=== PATIENT | male | born 1995 | race Caucasian/White ===

== ENCOUNTER 2024-04-21 22:04 | Emergency (ER) | payer OTHER ==
[2024-04-21 22:17] LABS: Glucose,Whole Blood 111 mg/dL (70-110)
--- NOTE | 2024-04-21 22:31 | ED ---
Trauma HPI - General Stated Complaint: Fall Time Seen by Provider: 04/21/24 22:09 Source: patient, family Mode of arrival: ambulatory Limitations: no limitations - History of Present Illness Initial Comments: This patient is a 28-year-old man who arrives to have evaluation after having had a fall. The patient reportedly on the roof of his residence. Fell approximately 15 to 20 feet landing on the ground. The patient does not remember the details of the fall. He is not aware if he lost consciousness or not but definitely was dazed if not unconscious. The patient's partner states that family heard him yelling went and found that he had fallen and they convinced him to come here. The patient complains of pain to the left side of the face and the left maxillary area. The patient denies pain to the neck, chest, back and extremities. He does have left shoulder abrasion and left facial laceration that he has noted. He states his last tetanus shot was less than 10 years ago. MD Complaint: fall -: minutes(s) Loss of Consciousness: unsure Location: head Location - Extremities: Left: Shoulder Consistency: constant Context: mechanical fall Associated Symptoms: denies other symptoms - Related Data Previous Rx's Medication Instructions Recorded Cyclobenzaprine [Flexeril] 10 mg PO TID #20 tab 04/13/15 methylPREDNISolone [Medrol] 4 mg PO DIRECTED #1 tab.ds.pk 04/13/15 Allergies Allergy/AdvReac Type Severity Reaction Status Date / Time No Known Allergies Allergy Verified 04/21/24 22:53 Review of Systems ROS Statement: Those systems with pertinent positive or pertinent negative responses have been documented in the HPI. ROS Other: All systems not noted in ROS Statement are negative. Constitutional: Denies: fever, weakness Eyes: Reports: eye pain. Denies: vision change ENT: Denies: ear pain, hearing loss, epistaxis Respiratory: Denies: cough, dyspnea Cardiovascular: Denies: chest pain, palpitations, syncope Gastrointestinal: Denies: abdominal pain, nausea, vomiting Genitourinary: Denies: dysuria, hematuria Skin: Denies: rash Neurological: Reports: headache. Denies: weakness, numbness, paresthesias, confusion Hematological/Lymphatic: Denies: easy bleeding Past Medical History Past Medical History: No Reported History Additional Past Medical History / Comment(s): HAS UMBILICAL HERNIA, AND LIPOMA ON BACK. History of Any Multi-Drug Resistant Organisms: None Reported Past Surgical History: Tonsillectomy Past Anesthesia/Blood Transfusion Reactions: No Reported Reaction Past Psychological History: No Psychological Hx Reported Past Alcohol Use History: Occasional Past Drug Use History: Marijuana, Prescription Drug Abuse Additional Drug Use History / Comment(s): WAS IN REHAB X2 FOR PREV DRUG USE; NO NE IN PAST YEAR. FATHER UNSURE OF ALL DRUGS POSSIBLY USED - ASK PATIENT ON ARRIVAL General Exam Limitations: no limitations General appearance: alert Head exam: Present: normocephalic, other (Patient has left frontal abrasion and contusion with small amount of swelling and tenderness. No obvious deformity. Left periorbital contusion and swelling.) Eye exam: Present: PERRL, EOMI, periorbital swelling, periorbital tenderness ENT exam: Present: normal oropharynx, mucous membranes moist Neck exam: Present: normal inspection, full ROM. Absent: tenderness, meningismus Respiratory exam: Present: normal lung sounds bilaterally. Absent: respiratory distress, wheezes, rales, rhonchi, stridor, chest wall tenderness, accessory muscle use Cardiovascular Exam: Present: regular rate, normal rhythm, normal heart sounds. Absent: systolic murmur, diastolic murmur, rubs, gallop GI/Abdominal exam: Present: soft. Absent: distended, tenderness, guarding, rebound, rigid, mass Extremities exam: Present: normal capillary refill, other (There is abrasion over the left deltoid area of the shoulder. No obvious deformity. Moderate tenderness.). Absent: pedal edema, calf tenderness Back exam: Present: normal inspection. Absent: CVA tenderness (R), CVA tenderness (L) Neurological exam: Present: alert, oriented X3, CN II-XII intact. Absent: motor sensory deficit Skin exam: Present: warm, dry, intact, normal color. Absent: rash Course Vital Signs 04/21/24 04/22/24 22:05 01:50 Temperature 97.8 F 97.6 F Pulse Rate 73 65 Respiratory 15 18 Rate Blood Pressure 143/107 138/85 O2 Sat by Pulse 95 95 Oximetry Medical Decision Making - Medical Decision Making The case is activated as a trauma 2. Arrival the patient brought directly to the trauma room where he is seen and evaluated. Studies are ordered. The patient was up and ambulating therefore pelvis x-ray was held. The patient had chest x-ray that I interpreted as negative for pneumothorax, acute bony injury, or infiltrate. The patient is sent for CT scans He had CT of the brain and C-spine that I interpreted as negative for acute intracranial hemorrhage, cervical fracture or subluxation. The patient had CT of the chest abdomen and pelvis that I interpreted as negative for acute bony trauma or solid organ injury. No free air in the chest or abdomen. Patient had CT of the facial bones which do reveal left orbital roof fracture and fracture of the greater wing of the sphenoid bone. Patient also does have radiopaque foreign bodies in the facial laceration. The patient's injuries are discussed with the trauma surgeon and recommendation is to have the patient transferred to be evaluated by facial plastics. Patient is given empiric dose of antibiotics to cover the facial fractures and the laceration. Was pt. sent in by a medical professional or institution (, [facility], [employer], urgent care, hospital, or senior care...) When possible be specific @ -[No] Did you speak to anyone other than the patient for history (EMS, parent, family, police, friend...)? What history was obtained from this source @ -[No] Did you review nursing and triage notes (agree or disagree)? Why? @ -[I reviewed and agree with nursing and triage notes] Were old charts reviewed (outside hosp., previous admission, EMS record, old EKG, old radiological studies, urgent care reports/EKG's, senior care records)? Report findings @ -[No old charts were reviewed] Differential Diagnosis (chest pain, altered mental status, abdominal pain women, abdominal pain men, vaginal bleeding, weakness, fever, dyspnea, syncope, headache, dizziness, GI bleed, back pain, seizure, CVA, palpatations, mental health, musculoskeletal)? @ -[Differential Musculoskeletal Muscular strain, contusion, ligament sprain, fracture, arthritis, septic arthritis, bursitis, cellulitis, muscle spasm, nerve compression, DVT, arterial occlusion, herpes zoster, electrolyte abnormality, tumor.... This is not meant to be in all inclusive list EKG interpreted by me (3pts min.). @ -[As above] X-rays interpreted by me (1pt min.). @ -[I interpreted as above CT interpreted by me (1pt min.). @ -[I interpreted as above U/S interpreted by me (1pt. min.). @ -[None done] What testing was considered but not performed or refused? (CT, X-rays, U/S, labs)? Why? @ -[None] What meds were considered but not given or refused? Why? @ -[None] Did you discuss the management of the patient with other professionals (pro fessionals i.e. , PA, INTERIM CONTR[employer]ER, lab, RT, psych nurse, social science professor, professor of economics, teacher, surveillance officer, showcase trimmer)? Give summary @ -[No] Was smoking cessation discussed for >3mins.? @ -[No] Was critical care preformed (if so, how long)? @ -[Yes, 40 minutes Were there social determinants of health that impacted care today? How? (Homelessness, low income, unemployed, alcoholism, drug addiction, tra nsportation, low edu. Level, literacy, decrease access to med. care, fpc, rehab)? @ -[No] Was there de-escalation of care discussed even if they declined (Discuss DNR or withdrawal of care, Hospice)? DNR status @ -[No] What co-morbidities impacted this encounter? (DM, HTN, Smoking, COPD, CAD, Can cer, CVA, ARF, Chemo, Hep., AIDS, mental health diagnosis, sleep apnea, morbid obesity)? @ -[None] Was patient admitted / discharged? Hospital course, mention meds given and route, prescriptions, significant lab abnormalities, going to OR and other pertinent info. @ -[See above notes Undiagnosed new problem with uncertain prognosis? @ -[No] Drug Therapy requiring intensive monitoring for toxicity (Heparin, Nitro, Insulin, Cardizem)? @ -[No] Were any procedures done? @ -[No] Diagnosis/symptom? @ -[Acute fall injury Closed head injury Orbital roof fracture Sphenoid fracture Acute, or Chronic, or Acute on Chronic? @ -[Acute Uncomplicated (without systemic symptoms) or Complicated (systemic symptoms)? @ -[Uncomplicated Side effects of treatment? @ -[No] Exacerbation, Progression, or Severe Exacerbation? @ -[No] Poses a threat to life or bodily function? How? (Chest pain, [place], [place], pneumonia, PE, COPD, DKA, ARF, appy, cholecystitis, CVA, Diverticulitis, Homicidal, Suicidal, threat to staff... and all critical care pts) @ -[Yes - Lab Data Result diagrams: 04/21/24 22:10 04/21/24 22:10 Lab Results 04/21/24 04/21/24 04/21/24 Range/Units 22:10 22:10 22:10 WBC 17.0 H (3.8-10.6) k/uL RBC 5.46 (4.30-5.90) m/uL Hgb 17.0 (13.0-17.5) gm/dL Hct 49.6 (39.0-53.0) % MCV 90.8 (80.0-100.0) fL MCH 31.0 (25.0-35.0) pg MCHC 34.2 (31.0-37.0) g/dL RDW 12.8 (11.5-15.5) % Plt Count 334 (150-450) k/uL MPV 8.3 Neutrophils % 81 % Lymphocytes % 10 % Monocytes % 6 % Eosinophils % 2 % Basophils % 0 % Neutrophils # 13.8 H (1.3-7.7) k/uL Lymphocytes # 1.7 (1.0-4.8) k/uL Monocytes # 1.0 (0-1.0) k/uL Eosinophils # 0.3 (0-0.7) k/uL Basophils # 0.1 (0-0.2) k/uL PT 11.0 (10.0-12.5) sec INR 1.0 (<1.2) APTT 23.0 (22.0-30.0) sec Sodium 137 (137-145) mmol/L Potassium 3.7 (3.5-5.1) mmol/L Chloride 103 (98-107) mmol/L Carbon Dioxide 24 (22-30) mmol/L Anion Gap 10 mmol/L BUN 12 (9-20) mg/dL Creatinine 0.91 (0.66-1.25) mg/dL Est GFR (CKD-EPI)AfAm >90 (>60 ml/min/1.73 sqM) Est GFR (CKD-EPI)NonAf >90 (>60 ml/min/1.73 sqM) Glucose 102 H (74-99) mg/dL POC Glucose (mg/dL) (70-110) mg/dL POC Glu Director Of Knowledge Management ID Lactic Ac Sepsis Rflx Plasma Lactic Acid Shawn (0.7-2.0) mmol/L Calcium 9.7 (8.4-10.2) mg/dL Total Bilirubin 0.6 (0.2-1.3) mg/dL AST 34 (17-59) U/L ALT 19 (4-49) U/L Alkaline Phosphatase 66 (38-126) U/L Troponin I (0.000-0.034) ng/mL Total Protein 8.1 (6.3-8.2) g/dL Albumin 5.1 H (3.5-5.0) g/dL Serum Alcohol 127 mg/dL Blood Type Blood Type Confirm Blood Type Recheck Bld Type Recheck Status Antibody Screen Spec Expiration Date 04/21/24 04/21/24 04/21/24 Range/Units 22:10 22:10 22:10 WBC (3.8-10.6) k/uL RBC (4.30-5.90) m/uL Hgb (13.0-17.5) gm/dL Hct (39.0-53.0) % MCV (80.0-100.0) fL MCH (25.0-35.0) pg MCHC (31.0-37.0) g/dL RDW (11.5-15.5) % Plt Count (150-450) k/uL MPV Neutrophils % % Lymphocytes % % Monocytes % % Eosinophils % % Basophils % % Neutrophils # (1.3-7.7) k/uL Lymphocytes # (1.0-4.8) k/uL Monocytes # (0-1.0) k/uL Eosinophils # (0-0.7) k/uL Basophils # (0-0.2) k/uL PT (10.0-12.5) sec INR (<1.2) APTT (22.0-30.0) sec Sodium (137-145) mmol/L Potassium (3.5-5.1) mmol/L Chloride (98-107) mmol/L Carbon Dioxide (22-30) mmol/L Anion Gap mmol/L BUN (9-20) mg/dL Creatinine (0.66-1.25) mg/dL Est GFR (CKD-EPI)AfAm (>60 ml/min/1.73 sqM) Est GFR (CKD-EPI)NonAf (>60 ml/min/1.73 sqM) Glucose (74-99) mg/dL POC Glucose (mg/dL) (70-110) mg/dL POC Glu Director Of Knowledge Management ID Lactic Ac Sepsis Rflx Plasma Lactic Acid Shawn 2.7 H* (0.7-2.0) mmol/L Calcium (8.4-10.2) mg/dL Total Bilirubin (0.2-1.3) mg/dL AST (17-59) U/L ALT (4-49) U/L Alkaline Phosphatase (38-126) U/L Troponin I <0.012 (0.000-0.034) ng/mL Total Protein (6.3-8.2) g/dL Albumin (3.5-5.0) g/dL Serum Alcohol mg/dL Blood Type B Positive Blood Type Confirm Blood Type Recheck No Previous Record Bld Type Recheck Status CABO Indicated Antibody Screen NEGATIVE Spec Expiration Date 04/24/2024230904/21/24 04/21/24 04/21/24 Range/Units 22:10 22:13 23:28 WBC (3.8-10.6) k/uL RBC (4.30-5.90) m/uL Hgb (13.0-17.5) gm/dL Hct (39.0-53.0) % MCV (80.0-100.0) fL MCH (25.0-35.0) pg MCHC (31.0-37.0) g/dL RDW (11.5-15.5) % Plt Count (150-450) k/uL MPV Neutrophils % % Lymphocytes % % Monocytes % % Eosinophils % % Basophils % % Neutrophils # (1.3-7.7) k/uL Lymphocytes # (1.0-4.8) k/uL Monocytes # (0-1.0) k/uL Eosinophils # (0-0.7) k/uL Basophils # (0-0.2) k/uL PT (10.0-12.5) sec INR (<1.2) APTT (22.0-30.0) sec Sodium (137-145) mmol/L Potassium (3.5-5.1) mmol/L Chloride (98-107) mmol/L Carbon Dioxide (22-30) mmol/L Anion Gap mmol/L BUN (9-20) mg/dL Creatinine (0.66-1.25) mg/dL Est GFR (CKD-EPI)AfAm (>60 ml/min/1.73 sqM) Est GFR (CKD-EPI)NonAf (>60 ml/min/1.73 sqM) Glucose (74-99) mg/dL POC Glucose (mg/dL) 111 H (70-110) mg/dL POC Glu Director Of Knowledge Management ID Lawrence Lundberg Lactic Ac Sepsis Rflx Y Plasma Lactic Acid Shawn (0.7-2.0) mmol/L Calcium (8.4-10.2) mg/dL Total Bilirubin (0.2-1.3) mg/dL AST (17-59) U/L ALT (4-49) U/L Alkaline Phosphatase (38-126) U/L Troponin I (0.000-0.034) ng/mL Total Protein (6.3-8.2) g/dL Albumin (3.5-5.0) g/dL Serum Alcohol mg/dL Blood Type Blood Type Confirm B Positive Blood Type Recheck Bld Type Recheck Status Antibody Screen Spec Expiration Date - EKG Data -: EKG Interpreted by Ar EKG shows normal: sinus rhythm (70 bpm), axis (Normal), intervals (OH interval 154 ms, EC 383 ms, both normal. QRS duration 118 ms, borderline for prolonged.), QRS complexes (Moderate intraventricular conduction delay.) Disposition Clinical Impression: Orbit fracture, left, Fracture of sphenoid bone, Facial laceration Disposition: OTHER INSTITUTION NOT DEFINED Condition: Serious Is patient prescribed a controlled substance at d/c from ED?: No Referrals: None,Stated [Primary Care Provider] - 1-2 days - Out of Hospital Transfer - Req. Specs Out of Hospital Transfer - Requested Specifics: Other Emergency Center
[2024-04-21 22:35] LABS: Basophils # (A) 0.1 k/uL (0-0.2); Basophils % (A) 0 %; Eosinophils # (A) 0.3 k/uL (0-0.7); Eosinophils % (A) 2 %; HCT 49.6 % (39.0-53.0); Lymphocytes # (A) 1.7 k/uL (1.0-4.8); Lymphocytes % (A) 10 %; MCHC 34.2 g/dL (31.0-37.0); MCV 90.8 fL (80.0-100.0); Mean Platelet Volume 8.3; Monocytes % (A) 6 %; Neutrophils # (A) 13.8 k/uL (1.3-7.7); Neutrophils % (A) 81 %; Platelet Count 334 k/uL (150-450); RBC 5.46 m/uL (4.30-5.90); RDW 12.8 % (11.5-15.5)
[2024-04-21 23:01] LABS: ALT 19 U/L (4-49); AST 34 U/L (17-59); African American GFR (CKD) >90 (>60 ml/min/1.73 sqM); Albumin 5.1 g/dL (3.5-5.0); Alkaline Phosphatase 66 U/L (38-126); Anion Gap 10 mmol/L; Blood Urea Nitrogen 12 mg/dL (9-20); Calcium 9.7 mg/dL (8.4-10.2); Carbon Dioxide 24 mmol/L (22-30); Chloride 103 mmol/L (98-107); Glucose 102 mg/dL (74-99); Non-African American GFR(CKD) >90 (>60 ml/min/1.73 sqM); Potassium 3.7 mmol/L (3.5-5.1); Sodium 137 mmol/L (137-145); Total Bilirubin 0.6 mg/dL (0.2-1.3); Total Protein 8.1 g/dL (6.3-8.2)
--- NOTE | 2024-04-21 23:01 | XR ---
EXAM: XR Chest, 1 View CLINICAL HISTORY: ITS.REASON XR Reason: trauma TECHNIQUE: Frontal view of the chest. COMPARISON: None. FINDINGS: Patient's body habitus limits the study. Underexpanded lungs. Mild elevated right hemidiaphragm. Lungs: Unremarkable. No consolidation. Pleural space: Unremarkable. No pneumothorax. Heart: No definite cardiomegaly. Mediastinum: Unremarkable. Normal mediastinal contour. Bones/joints: Unremarkable. No acute fracture. IMPRESSION: No acute cardiopulmonary process. .
[2024-04-21] MEDS: HYDROmorphone 1 MG/ML 1 ML SYRINGE IVP STA (23:18)
[2024-04-21 23:27] LABS: Alcohol 127 mg/dL
--- NOTE | 2024-04-21 23:29 | CT ---
EXAM: CT Maxillofacial Without Intravenous Contrast CLINICAL HISTORY: ITS.REASON CT Reason: fall injury TECHNIQUE: Axial computed tomography images of the face without intravenous contrast. CTDI is 12.9 mGy and DLP is 364.6 mGy-cm. This CT exam was performed using one or more of the following dose reduction techniques: automated exposure control, adjustment of the mA and/or kV according to patient size, and/or use of iterative reconstruction technique. COMPARISON: None. FINDINGS: Bones/joints: Nondisplaced small fractures of the left posterior orbital roof, subtle fractures of the left greater wing of sphenoid bone (series 213 image 40) and mild diastasis of left zygomaticofrontal sutures (series 213 image 30). Soft tissues: Demonstrates left temporal/periorbital significant soft tissue edema/swelling with a 2.6 cm wide cutaneous ulceration and with multiple small high density superficial/deep soft tissue foreign bodies. Orbits: Unremarkable. Sinuses: Inflammatory mucoperiosteal thickening with small air-fluid levels of the left sphenoid sinus and soft tissue densities of the right maxillary sinus and bilateral ethmoid air cells is seen with completely occluded left ostiomeatal unit complex and partially occluded right ostiomeatal unit complex. Other findings: . There is likely hematomas of the nasal vestibules. IMPRESSION: Demonstrate small fractures of the left posterior orbital roof, subtle fractures of the left greater wing of sphenoid bone and mild diastasis of the left zygomaticofrontal sutures. Significant edema/swelling of the left temporal/periorbital soft tissues with cutaneous ulceration and multiple small high density rounded/metal- like foreign bodies. Likely hematomas of the nasal vestibules. Acute/chronic sinusitis. .
--- NOTE | 2024-04-21 23:46 | CT ---
EXAM: CT Head Without Intravenous Contrast CLINICAL HISTORY: ITS.REASON CT Reason: trauma TECHNIQUE: Axial computed tomography images of the head/brain without intravenous contrast. CTDI is 12.9 mGy and DLP is 364.6 mGy-cm. This CT exam was performed using one or more of the following dose reduction techniques: automated exposure control, adjustment of the mA and/or kV according to patient size, and/or use of iterative reconstruction technique. COMPARISON: None. FINDINGS: Motion-induced image degradation. Brain: Unremarkable. No hemorrhage. No significant white matter disease. No edema. Ventricles: Unremarkable. No ventriculomegaly. Bones/joints: No obvious acute fracture of the calvarium. Soft tissues: Significant edema/swelling of the soft tissues of the left lateral periorbital/temporal regions and posteriorly over the left parieto-occipital calvarium is seen with numerous variable sized cutaneous, superficial/deep subcutaneous metal-like foreign bodies. Sinuses: Left sphenoid small fluid level/acute sinusitis and inflammatory soft tissues of the right maxillary sinus and bilateral ethmoid air cells/chronic sinusitis. A small angulated fracture of the anterior wall of the left sphenoid sinus (series 301 image 7). . IMPRESSION: No acute intracranial hemorrhage, mass-effect or midline shift of structures. Significant soft tissue edema/swelling at the left lateral periorbital/temporal regions and posteriorly over the left parieto- occipital calvarium seen with numerous variable sized cutaneous, superficial/deep subcutaneous metal-like foreign bodies. Clinical correlation is advised. Acute/chronic sinusitis. A small fracture with angulation of the anterior wall of the left sphenoid sinus. . EXAM: CT Cervical Spine Without Intravenous Contrast CLINICAL HISTORY: ITS.REASON CT Reason: trauma TECHNIQUE: Axial computed tomography images of the cervical spine without intravenous contrast. CTDI is 15.3 mGy and DLP is 391.2 mGy-cm. This CT exam was performed using one or more of the following dose reduction techniques: automated exposure control, adjustment of the mA and/or kV according to patient size, and/or use of iterative reconstruction technique. COMPARISON: No relevant prior studies available. FINDINGS: Vertebrae: Unremarkable. No acute fracture. Discs/spinal canal/neural foramina: No acute findings. No spinal canal stenosis. Soft tissues: Unremarkable. IMPRESSION: Normal Cervical spine CT.
--- NOTE | 2024-04-22 00:18 | CT ---
EXAM: CT Chest With Intravenous Contrast CLINICAL HISTORY: ITS.REASON CT Reason: fall TECHNIQUE: Axial computed tomography images of the chest with intravenous contrast. CTDI is 15 mGy and DLP is 1246 mGy-cm. This CT exam was performed using one or more of the following dose reduction techniques: automated exposure control, adjustment of the mA and/or kV according to patient size, and/or use of iterative reconstruction technique. COMPARISON: None. FINDINGS: Motion-induced image degradation Lungs: Central airways are patent. No mass. No consolidation. Pleural space: Unremarkable. No pneumothorax. No significant effusion. Heart: Unremarkable. No cardiomegaly. No significant pericardial effusion. No significant coronary artery calcifications. Bones/joints: Unremarkable. No acute fracture. No dislocation. Soft tissues: Unremarkable. Vasculature: Unremarkable. No thoracic aortic aneurysm. Lymph nodes: Unremarkable. No enlarged lymph nodes. . IMPRESSION: No evidence of acute traumatic intrathoracic injury. No mediastinal hematoma. . EXAM: CT Abdomen and Pelvis With Intravenous Contrast CLINICAL HISTORY: ITS.REASON CT Reason: fall TECHNIQUE: Axial computed tomography images of the abdomen and pelvis with intravenous contrast. CTDI is 15.4 mGy and DLP is 740.1 mGy-cm. This CT exam was performed using one or more of the following dose reduction techniques: automated exposure control, adjustment of the mA and/or kV according to patient size, and/or use of iterative reconstruction technique. COMPARISON: No relevant prior studies available. FINDINGS: Motion-induced image degradation limits the diagnostic sensitivity of the exam. ABDOMEN: Liver: Mild steatosis. There is a 10.2 x 7.6 cm heterogeneously hypodense lesion seen posteriorly in the right hepatic lobe on the sagittal, series 203 image 40 only. Gallbladder and bile ducts: Unremarkable. No calcified stones. No ductal dilation. Pancreas: There is a pancreatic fracture versus cleft with a linear hypodensity across the body of the pancreas (series 201 image 63, 64). However no significant peripancreatic fluid collection or significant hematoma noted at this time, although evaluation is hampered by motion artifact. No ductal dilation. Spleen: Unremarkable. No splenomegaly. Adrenals: Unremarkable. No mass. Kidneys and ureters: Bilateral renal upper poles mottled decreased parenchymal enhancement noted mostly on sagittal images, artifact versus parenchymal contusions (series 203 image 50,92). No hydronephrosis. Stomach and bowel: Mildly distended fluid/gas filled stomach.. No obstruction. PELVIS: Appendix: No acute findings in the region of the appendix. Bladder: Unremarkable. No mass. Reproductive: Unremarkable as visualized. ABDOMEN and PELVIS: Intraperitoneal space: Unremarkable. No free air. No significant fluid collection. Bones/joints: No acute fracture. No dislocation. Soft tissues: Unremarkable. Vasculature: Unremarkable. No abdominal aortic aneurysm. Lymph nodes: Unremarkable. No enlarged lymph nodes. IMPRESSION: Motion-induced image degradation limits anatomically detailed/diagnostic sensitivity of the exam. Pancreatic fracture versus a pancreatic cleft across the body of the pancreas. Clinical correlation recommended. The need for repeat CT exam can be determined clinically. A 10.2 x 7.6 cm heterogeneously hypodense masslike lesion seen posteriorly in the right hepatic lobe, artifact versus parenchymal contusion. Bilateral renal upper poles cortical decreased parenchymal enhancement, artifact versus parenchymal contusions. The need for repeat CT exam to be determined clinically.
[2024-04-22] MEDS: AMPICILLIN-SULBACTAM 3 GM in SODIUM CHLORIDE 0.9% 100 ML IVPB STA (00:38)
[2024-04-22] MEDS: ONDANSETRON 4 MG/2 ML VIAL IVP STA (00:42)
[2024-04-22] MEDS: HYDROmorphone 1 MG/ML 1 ML SYRINGE IVP STA (00:45)
[2024-04-22] MEDS: HYDROmorphone 0.5 MG/0.5 ML SYRINGE IVP STA (01:46)
--- NOTE | 2024-04-22 02:06 | XR ---
EXAM: XR Left Shoulder Complete, 2 or More Views CLINICAL HISTORY: ITS.REASON XR Reason: trauma TECHNIQUE: Two or more views of the left shoulder. COMPARISON: None. FINDINGS: Bones/joints: Unremarkable. No acute fracture. No dislocation. Soft tissues: There is subcutaneous soft tissue edema/swelling of the shoulder. Superiorly a 1.2 x 1.0 cm cutaneous/subcutaneous nonspecific soft tissue nodule seen . IMPRESSION: Negative for fracture or dislocation. Soft tissue edema/swelling of the left shoulder as described. .
[2024-04-22 08:54] VITALS: BP 138/85; PULSE 65; RESP 18; TEMP 97.6
== END 2024-04-22 01:50 | disposition other institution (70) ==
LOC: EC 22:04
DX: S02.19XA Other fracture of base of skull, initial encounter for closed fracture (principal); S02.122A Fracture of orbital roof, left side, initial encounter for closed fracture; S40.212A Abrasion of left shoulder, initial encounter; W17.89XA Other fall from one level to another, initial encounter
CPT/HCPCS: 36415; 93005; 86900; 86901; 80053; 83605; 84484; 85025; 85610; 85730; 86850; 80320; 73030; 71045; 72125; 70486; 70450; 71260; 74177; 99291; 96365; 96375 ×2; 96376 ×2; J2405; J1170 ×3; J0295; Q9967